=== PATIENT | female | born 1960 | race African-American/Black ===

== ENCOUNTER 2017-03-17 10:57 | Inpatient (IN) | payer OTHER ==
[~2017-03-17] VITALS: Ht 157.5 cm; Wt 103.8 kg
--- NOTE | ~2017-03-17 | EKG ---
[place] [address] [facility] [address] [place] [address] ELECTROCARDIOGRAM REPORT Name: ISSAC SOTO Room #: 170-12 ADM IN M.R.#: [id number] Admission: 03/17/17 Attend Phys: Dl Trotter Discharge: Date of : 64 Report #: [id number] THIS REPORT FOR: //name// [facility] ED Test Date: 2017-03-17 Test Time: 11:26:55 Pat Name: ISSAC SOTO Department: Room: 170 Gender: F Surgical Services Director: elizabeth : 1960 Requested By: Lana Barrera Order Number: [id number] MD: Nura Beckett Measurements Intervals [place] Rate: 103 P: 54 DC: 153 QRS: 16 QRSD: 75 T: 3 QT: 332 QTc: 435 Interpretive Statements Sinus tachycardia Multiple ventricular premature complexes Borderline T abnormalities, anterior leads No previous ECG available for comparison Electronically Signed On 03-17-2017 14:09:59 CDT by Nura Beckett [email or web address] <ELECTRONICALLY SIGNED> By: Nuar Beckett MD, [facility] 03/17/17 1409 1126 1126 Nura Beckett MD, FACC /EPI
[~2017-03-17 10:57] MED LIST: COLACE100 MG; DULCOLAX5 MG; HYDROCHLOROTH12.5 M1; KLOR-CON 1010 MEQ; LIDODERM 5%1 PATC1; LISINOPRIL10 MG; MEDROLDOSEPACK PO; NORVASC10 MG; PENICILLIN V P500 MG PO; PROTONIX 20 MG20 M1; TOPROL XL50 MG; VALIUM5 MG; ZOCOR 10 MG TAB10 MG
[2017-03-17 10:58] VITALS: BP 145/96
[2017-03-17 11:14] LABS: ABSOLUTE NEUTROPHILS 6.5 thou/uL (1.4-8.2); BASOPHILS 0.6 % (0.0-2.0); EOSINOPHILS 2.7 % (0.0-3.0); HEMOGLOBIN 14.6 gm/dL (12.0-15.0); LYMPHOCYTES 19.2 % (24.0-44.0); MCH 30.7 pg (26.0-34.0); MCHC 34.8 g/dL (28.0-37.0); MCV 88.1 fL (80.0-100.0); MONOCYTES 10.7 % (1.0-8.0); PLATELET COUNT 171 thou/uL (150-400); POLYS 66.8 % (36.0-66.0); RBC 4.76 mil/uL (4.20-5.00); RDW 13.8 % (10.5-14.5); WBC 9.8 thou/uL (4.0-11.0)
[2017-03-17 11:15] LABS: MANUAL DIFF NO
[2017-03-17 11:16] LABS: POC CA IONIZED 4.5 mg/dL (4.5-5.3); POC CREATININE 1.6 mg/dL (0.6-1.3); POC HEMOGLOBIN 14.6 g/dL (12.0-15.0); POC POTASSIUM 2.9 mmol/L (3.5-5.1)
[2017-03-17 11:27] LABS: APTT 30.6 Seconds (24.5-32.8); INR 1.1
[2017-03-17 11:30] LABS: PROTIME 11.3 Seconds (9.3-11.4)
[2017-03-17 11:32] LABS: ALBUMIN 3.7 g/dL (3.4-5.0); ALKALINE PHOSPHATASE 49 U/L (46-116); ANION GAP 13 mmol/L (7-16); BUN 17 mg/dL (7-18); CALCIUM 9.1 mg/dL (8.5-10.1); CHLORIDE 104 mmol/L (98-107); CO2 26 mmol/L (21-32); CREATININE 1.7 mg/dL (0.6-1.0); DIRECT BILIRUBIN 0.1 mg/dL (<0.1-0.3); SGOT 18 U/L (15-37); SGPT 21 U/L (30-65); SODIUM 143 mmol/L (136-145); TOTAL BILIRUBIN 0.5 mg/dL (<0.1-1.0); TOTAL PROTEIN 8.2 g/dL (6.4-8.2); TROPONIN-I < 0.04 ng/mL (<0.04-0.07)
[2017-03-17 11:33] LABS: GLUCOSE 102 mg/dL (74-106)
[2017-03-17 11:34] LABS: POTASSIUM 2.8 mmol/L (3.5-5.1)
[2017-03-17 13:52] VITALS: BP 143/83
[2017-03-17 14:37] VITALS: BP 139/94
[2017-03-17] MEDS ORDERED: PANTOPRAZOLE SO40 M1 PO (15:44)
[2017-03-17] MEDS ORDERED: PLAVIX 75 MG TA75 M1 PO (15:44)
[2017-03-17] MEDS ORDERED: SIMVASTATIN40 MG PO (15:45)
[2017-03-17] MEDS ORDERED: POTASSIUM20 PO (15:45)
[2017-03-17] MEDS ORDERED: GABAPENTIN 100100 MG PO (15:47)
[2017-03-17] MEDS ORDERED: DIAZEPAM 5 MG5 M1 PO (15:47)
[2017-03-17] MEDS ORDERED: LOPRESSOR100 M1 PO (15:48)
[2017-03-17] MEDS ORDERED: CHLORTHALIDONE25 MG PO (15:49)
[2017-03-17] MEDS ORDERED: STOOL SOFT-STI1 EACH PO (15:51)
[2017-03-17] MEDS ORDERED: ARTIFICIAL TEA1 EACH OP ×2 (15:52→16:18)
[2017-03-17 20:27] LABS: MAGNESIUM 1.4 mg/dL (1.8-2.4); POTASSIUM 3.4 mmol/L (3.5-5.1)
[2017-03-17 20:51] VITALS: BP 127/77
[2017-03-18] VITALS: BP 132/78
[2017-03-18 04:59] VITALS: BP 130/81
[2017-03-18 05:28] LABS: CALCIUM 8.5 mg/dL (8.5-10.1); CREATININE 1.7 mg/dL (0.6-1.0); MAGNESIUM 1.3 mg/dL (1.8-2.4); POTASSIUM 3.3 mmol/L (3.5-5.1)
[2017-03-18 08:53] VITALS: BP 126/76
[2017-03-18 11:22] VITALS: BP 114/72
[2017-03-18 15:25] VITALS: BP 146/79
[2017-03-18 19:27] VITALS: BP 124/80
[2017-03-19 04:00] VITALS: BP 121/77
[2017-03-19 05:19] LABS: CALCIUM 8.7 mg/dL (8.5-10.1); CREATININE 1.5 mg/dL (0.6-1.0); MAGNESIUM 1.9 mg/dL (1.8-2.4); POTASSIUM 3.3 mmol/L (3.5-5.1)
[2017-03-19 08:01] VITALS: BP 116/68
[2017-03-19 11:20] VITALS: BP 116/68
[2017-03-19 12:02] VITALS: BP 125/85
== END 2017-03-19 14:10 | disposition home or self-care (01) | DRG 682 ==
LOC: ER 10:57 → EROBS 12:56 → 4W 12:56
PROVIDERS: Emergency Medicine; Hospitalist; Nurse Practitioner Family
DX: N17.9 Acute kidney failure, unspecified (principal); R65.11 Systemic inflammatory response syndrome (SIRS) of non-infectious origin with acute organ dysfunction; I69.954 Hemiplegia and hemiparesis following unspecified cerebrovascular disease affecting left non-dominant side; K52.9 Noninfective gastroenteritis and colitis, unspecified; E86.0 Dehydration; E87.6 Hypokalemia; I10 Essential (primary) hypertension; Z88.6 Allergy status to analgesic agent; Z88.2 Allergy status to sulfonamides; Z88.8 Allergy status to other drugs, medicaments and biological substances; Z79.899 Other long term (current) drug therapy
CPT/HCPCS: 10045

== ENCOUNTER 2017-06-04 12:35 | Emergency (ER) | payer OTHER ==
[~2017-06-04] VITALS: Ht 157.5 cm; Wt 79.4 kg
--- NOTE | ~2017-06-04 | EKG ---
[place] [address] [facility] [place] [address] ELECTROCARDIOGRAM REPORT Name: ISSAC SOTO Room #: [facility]#: [id number] Admission: 06/04/17 Attend Phys: Discharge: 06/04/17 Date of : 64 Report #: [id number] THIS REPORT FOR: //name// [facility] ED Test Date: 2017-06-04 Test Time: 12:50:59 Pat Name: ISSAC SOTO Department: Room: Gender: F Night Shift: MARYANN : 1960 Requested By: Leighton Larson Order Number: [id number] MD: Nura Beckett Measurements Intervals [place] Rate: 63 P: 47 AR: 181 QRS: 3 QRSD: 81 T: 26 QT: 392 QTc: 402 Interpretive Statements Sinus rhythm Nonspecific T wave abnormality Compared to ECG 03/17/2017 11:26:55 Sinus tachycardia no longer present Ventricular premature complex(es) no longer present Electronically Signed On 06-05-2017 7:51:24 CDT by Nura Beckett [email or web address] <ELECTRONICALLY SIGNED> By: Nura Beckett MD, [facility] 06/05/17 0751 1250 1250 Nura Beckett MD, [facility] /EPI
[~2017-06-04 12:35] MED LIST changes: +ARTIFICIAL TEA1 EACH OP; +CHLORTHALIDONE25 MG PO; +DIAZEPAM 5 MG5 M1 PO; +GABAPENTIN 100100 MG PO; +LOPRESSOR100 M1 PO; +PANTOPRAZOLE SO40 M1 PO; +PLAVIX 75 MG TA75 M1 PO; +POTASSIUM20 PO; +SIMVASTATIN40 MG PO; +STOOL SOFT-STI1 EACH PO
[2017-06-04 12:57] LABS: ABSOLUTE NEUTROPHILS 5.4 thou/uL (1.4-8.2); BASOPHILS 0.6 % (0.0-2.0); EOSINOPHILS 2.2 % (0.0-3.0); HEMATOCRIT 40.1 % (37.0-47.0); HEMOGLOBIN 13.7 gm/dL (12.0-15.0); LYMPHOCYTES 27.1 % (24.0-44.0); MCH 30.2 pg (26.0-34.0); MCHC 34.1 g/dL (28.0-37.0); MCV 88.4 fL (80.0-100.0); MONOCYTES 8.7 % (1.0-8.0); PLATELET COUNT 212 thou/uL (150-400); POLYS 61.4 % (36.0-66.0); RBC 4.53 mil/uL (4.20-5.00); RDW 13.5 % (10.5-14.5); WBC 8.9 thou/uL (4.0-11.0)
[2017-06-04 12:58] LABS: MANUAL DIFF NO
[2017-06-04 13:06] LABS: ANION GAP 12 mmol/L (7-16); BUN 21 mg/dL (7-18); CALCIUM 9.8 mg/dL (8.5-10.1); CHLORIDE 103 mmol/L (98-107); CO2 27 mmol/L (21-32); CREATININE 1.7 mg/dL (0.6-1.0); GLUCOSE 99 mg/dL (74-106); POTASSIUM 3.3 mmol/L (3.5-5.1); SODIUM 142 mmol/L (136-145)
[2017-06-04 13:12] LABS: ALBUMIN 3.9 g/dL (3.4-5.0); ALKALINE PHOSPHATASE 59 U/L (46-116); SGOT 17 U/L (15-37); SGPT 22 U/L (30-65); TOTAL BILIRUBIN 0.4 mg/dL (<0.1-1.0); TOTAL PROTEIN 8.6 g/dL (6.4-8.2); TROPONIN-I < 0.04 ng/mL (<0.04-0.07)
[2017-06-04] MEDS ORDERED: PRINIVIL20 M1 PO (13:20)
[2017-06-04 13:53] LABS: URINE BILIRUBIN NEGATIVE (Negative); URINE BLOOD 1+ (Negative); URINE COLOR YELLOW; URINE GLUCOSE-RANDOM* NEGATIVE (Negative); URINE KETONES NEGATIVE (Negative); URINE LEUKOCYTES-REFLEX TRACE (Negative); URINE PROTEIN (DIPSTICK) 1+ (Negative); URINE UROBILINOGEN 0.2 E.U./dl (0.2-1.0)
[2017-06-04 14:10] LABS: CASTS None Seen /LPF (None Seen); CRYSTALS None Seen /LPF (None Seen); SQUAMOUS 0-3 Few /LPF (0-3); URINE RBC 0-2 Rare /HPF (0-2); URINE WBC-REFLEX 0-5 Rare /HPF (0-5)
== END 2017-06-04 15:42 | disposition home or self-care (01) ==
LOC: ER 12:35
PROVIDERS: Emergency Medicine
DX: R10.13 Epigastric pain (principal); I10 Essential (primary) hypertension; F03.90 Unspecified dementia, unspecified severity, without behavioral disturbance, psychotic disturbance, mood disturbance, and anxiety; Z87.442 Personal history of urinary calculi; Z98.890 Other specified postprocedural states; Z85.038 Personal history of other malignant neoplasm of large intestine; Z86.73 Personal history of transient ischemic attack (TIA), and cerebral infarction without residual deficits; Z88.2 Allergy status to sulfonamides; Z88.5 Allergy status to narcotic agent; Z88.6 Allergy status to analgesic agent

== ENCOUNTER 2019-06-02 10:15 | Emergency (ER) | payer OTHER ==
[~2019-06-02] VITALS: Ht 157.5 cm; Wt 108.9 kg
--- NOTE | ~2019-06-02 | EMS ---
[address] [address] EMS Patient Care Report Name: ISSAC SOTO Room #: DEP ILEANA Ortiz#: [id number] Admission: 06/02/19 Attend Phys: Discharge: 06/02/19 Date of : 64 Report #: [id number] THIS REPORT FOR: //name// Report Transmitted: 06/02/2019 16:15 EMS Care Summary [place], [place] Incident [id number] @ 06/02/2019 09:42 Incident Location [address] [place] [address] Patient ISSAC GIFFORD Female, 58 Years 1960 Patient Address [address] [place] [address] Patient History Hypertension,Stroke/CVA,Glaucoma, Patient Allergies No known allergies, Patient Medications Lisinopril, Valium, Plavix, Protonix, Metoprolol, Chief Complaint HEADACHE Disposition Transported No Lights/[place] Dispatch Reason Headache Transported To [facility] Narrative M42 DISPATCHED TO A HEADACHE. ON SCENE M42 FOUND THE PT IN HER LIVING ROOM. THE PT STATED THAT SHE HAS HAD A HEADACHE FOR THE PAST 15 HOURS AND EVENTS LIKE THIS HAVE BEEN HAPPENING FOR THE [address] [address] EMS Patient Care Report Name: ISSAC SOTO Room #: DEP Diana#: [id number] Admission: 06/02/19 Attend Phys: Discharge: 06/02/19 Date of : 64 Report #: [id number] PAST FEW MONTHS. SHE STATED THAT SHE WENT TO HER DOCTOR A FEW MONTHS AGO AND NO SOLUTION HAS BEEN FOUND. SHE STATED THAT SHE HAD A STROKE A FEW YEARS AGO AND SHE STATED THAT THE PAIN THAT SHE IS HAVING IS SIMILAR TO THE PAIN SHE HAD IN THE PAST. THE PTS HX, ALLERGIES, AND MEDS WERE GATHERED. THE PT WAS MOVED TO THE COT WITH ASSISTANCE AND MOVED INTO THE AMBULANCE. PT DENIED CP, SOB, N/V. THE PT STATED THAT SHE DID FEEL LIGHTHEADED. THE PT RATED HER PAIN AT A 3/10. THE PT STATED THAT THE PAIN WAS WORST LAST NIGHT, SHE TOOK TYLENOL AND SOME OF THE SYMPTOMS WERE RELIEVED. IN THE MEDIC UNIT THE PTS VITAL SIGNS WERE OBTAINED. STROKE SCALE WAS NEGATIVE. PT DID NOT WANT A BLOOD GLUCOSE CHECK. PT DID NOT MEET TPA EXCLUSION CRITERIA PROTOCOL AND ONSET OF HEAD PAIN WAS LONGER THAN 12 HOURS SO PT WAS TRANSPORTED NON EMERGENT TO [facility] WHICH WAS ALSO HER PREFERENCE. EN ROUTE PT REMAINED STABLE. REPORT WAS GIVEN TO RN AT [facility]. SIGNATURES OBTAINED. TRANSFER OF CARE TOOK PLACE. M42 IN SERVICE. Initial Vitals @10:04P: 72,CO: 3,SpO2: 97, @09:54P: 69,R: 18,BP: 188/87,Pain: 3/10,GCS: 15,SpO2: 94,Revised Trauma: 12, @10:07P: 66,R: 18,BP: 154/89,Pain: 3/10,GCS: 15,SpO2: 96,Revised Trauma: 12, Assessments @09:48MENTAL:Person Oriented,Event Oriented,Time Oriented,Place Oriented,SKIN:HEENT:Head/Face: Other,LUNG SOUNDS:ABDOMEN:PELVIS//GI:EXTREMITIES:Right Leg: Edema,Left Leg: Edema,Capillary Refill: Right Upper: < 2 Sec,PULSE:Radial: 2+ Normal,NEURO:@10:08MENTAL:Time Oriented,Event Oriented,Person Oriented,Place Oriented,SKIN:HEENT:Head/Face: Other,LUNG SOUNDS:ABDOMEN:PELVIS//GI:EXTREMITIES:Left Leg: Edema,Right Leg: Edema,Capillary Refill: Right Upper: < 2 Sec,PULSE:Radial: 2+ Normal,NEURO: Impression Headache Procedures @09:48ALS AssessmentResponse: UnchangedSucceeded Timeline 09:40,Call Received 09:40,Dispatch Notified 09:42,Dispatched 09:44,En Route [address] [address] EMS Patient Care Report Name: ISSAC SOTO Room #: DEP ILEANA Ortiz#: [id number] Admission: 06/02/19 Attend Phys: Discharge: 06/02/19 Date of : 64 Report #: [id number] 09:47,On Scene 09:48,At Patient 09:48,ALS Assessment,Response: UnchangedSucceeded, 09:54,BP: 188/87 M,PULSE: 69,RR: 18 R,SPO2: 94 Ox,ETCO2: ,BG: ,PAIN: 3,GCS: 15, 09:55,Depart Scene 10:04,BP: / M,PULSE: 72,RR: R,SPO2: 97 Ox,ETCO2: ,BG: ,PAIN: ,GCS: , 10:07,BP: 154/89 M,PULSE: 66,RR: 18 R,SPO2: 96 Ox,ETCO2: ,BG: ,PAIN: 3,GCS: 15, 10:11,At Destination 10:27,Call Closed Disclaimer v1.1 Copyright 2019 [employer] This EMS Care Summary contains data elements from the applicable legal record (which may be displayed differently). It is designed to provide pertinent information for the following purposes: continuity of care, clinical quality, and state data reporting. The complete legal record is available to ED staff and administrators of the receiving hospital in [employer] Patient Tracker. All data is provided "as is."
[~2019-06-02 10:15] MED LIST changes: +PRINIVIL20 M1 PO
[2019-06-02 11:45] VITALS: BP 141/76
[2019-06-02 11:46] LABS: URINE BILIRUBIN NEGATIVE (Negative); URINE BLOOD 2+ (Negative); URINE CLARITY CLEAR; URINE COLOR YELLOW; URINE GLUCOSE-RANDOM* NEGATIVE (Negative); URINE KETONES NEGATIVE (Negative); URINE LEUKOCYTES-REFLEX TRACE (Negative); URINE NITRITE-REFLEX NEGATIVE (Negative); URINE PROTEIN (DIPSTICK) 2+ (Negative); URINE SPECIFIC GRAVITY 1.015 (1.005-1.035); URINE UROBILINOGEN 0.2 E.U./dl (0.2-1.0)
[2019-06-02 11:55] LABS: CASTS None Seen /LPF (None Seen); CRYSTALS None Seen /LPF (None Seen); SQUAMOUS 0-3 Few /LPF (0-3); URINE RBC 0-2 Rare /HPF (0-2); URINE WBC-REFLEX 6-15 Few /HPF (0-5)
== END 2019-06-02 12:14 | disposition home or self-care (01) ==
LOC: ER 10:15
PROVIDERS: Emergency Medicine
DX: R51 Headache (principal); I10 Essential (primary) hypertension; F03.90 Unspecified dementia, unspecified severity, without behavioral disturbance, psychotic disturbance, mood disturbance, and anxiety; Z86.73 Personal history of transient ischemic attack (TIA), and cerebral infarction without residual deficits; Z87.442 Personal history of urinary calculi; Z98.890 Other specified postprocedural states; Z85.038 Personal history of other malignant neoplasm of large intestine; Z88.2 Allergy status to sulfonamides; Z88.6 Allergy status to analgesic agent; Z88.8 Allergy status to other drugs, medicaments and biological substances

== ENCOUNTER 2020-09-11 19:41 | Inpatient (IN) | payer OTHER ==
[~2020-09-11] VITALS: Ht 157.5 cm; Wt 116.1 kg
--- NOTE | ~2020-09-11 | HC ---
[facility] [place] [address] CONSULTATION Name: ISSAC SOTO Room #: 205-P ADM IN M.R.#: [id number] Admission: 09/12/20 Attend Phys: Jose Antonio Damian MD Discharge: Date of : 64 Report #: [id number] THIS REPORT FOR: cc: [facility] - Clinic physician unknown [facility] - Clinic physician unknown Mathieu Schultz MD ~ DATE OF SERVICE: 09/12/2020 HISTORY OF PRESENT ILLNESS: This is a 59-year-old female patient who was evaluated by me for the possibility of stroke, patient is a poor historian. She said she had a stroke 16 years ago when she was in [facility]. She does not know why she had a stroke at such a young age, but she does tell me that she was markedly hypertensive when it happened. She used to smoke cigarette. She has smoked marijuana since she was a teenager on a continuous basis. She used to drink alcohol significantly at that time. At that time, she had headache and this time, again she had headache. She had some nonspecific symptoms on the right side. It was mainly tingling and numbness. She had some motor deficit. REVIEW OF SYSTEMS: Indicates that she has a longstanding history of hypertension. She had a history of colon cancer and kidney stones. She thinks her memory is poor. She gets headache periodically and that is going on for a long time. She was also complaining of some chest symptoms, which are better. She does not believe that she has ever been diagnosed with migraine headache. A 14-point review of system was carried out. She had some history of gingivitis. She was admitted with hypokalemia. She does have a history of cervical radiculopathy. She thinks she is ALLERGIC TO ASPIRIN. Presently, she is on Plavix. She does not believe she was on Plavix at home. That was a relevant 14-point review of system. PAST MEDICAL HISTORY: Positive for stroke about 16 years ago. FAMILY HISTORY: Positive for strokes and heart attack. SOCIAL HISTORY: She smokes marijuana. PHYSICAL EXAMINATION: The patient's examination indicates that she is alert and responsive. She is morbidly obese. She knows what month and what date it is. She knows what hospital she was in. She thinks her memory is poor, but her speech looks intact. Cranial nerve examination 2-12 was carried out. 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 She has significant weakness on the left side, which is spastic and according to her, it is old. Her position sense appeared to be present on both sides. It is difficult to tell about plantars in [address] [address] CONSULTATION Name: ISSAC SOTO Room #: [address] [place] [address] IN M.R.#: [id number] Admission: 09/12/20 Attend Phys: Jose Antonio Damian MD Discharge: Date of : 64 Report #: [id number] this patient. There is no meningeal sign. There is no carotid bruit. I could not look at the patient's fundus. Pulses are somewhat difficult to feel. Blood pressure is 147/75, respirations 18, pulse is 65, temperature is 98.1. LABORATORY DATA: White count is 9. She was hypokalemic when she came in. She did have an MRI of the brain, which does show a question of small stroke. She had a CT angio of the head and neck, which was unremarkable. IMPRESSION: 1. Small lacunar cerebrovascular accident. 2. Prior history of lacunar cerebrovascular accident on the opposite side. 3. History of hypertension. 4. Chronic marijuana abuse. 5. Morbid obesity. 6. Severe hyperlipidemia. 7. Her creatinine is high at 1.9 and she got some contrast and I will suggest rechecking it. RECOMMENDATIONS: 1. We need to treat her dyslipidemia aggressively. She is on statin 40 mg. Consideration can be given to increase it to 80 mg. 2. She still has a severe hyperlipidemia. That needs to be monitored and needs to be treated aggressively. 3. She needs to lose weight and follow healthy habits. 4. She needs to stop smoking marijuana and drugs. All of it was discussed with her. She is already on Plavix. I did not give out a loading dose. She is such a poor historian. She cannot tell me if she was taking the Plavix at home or not. She should stay on Plavix. I did all her blood workup. I do not know whether she will qualify for rehabilitation or not but since she had a stroke, we will put a consult and see if she qualifies, she is ready to go there. If she does not qualify, we should start thinking about disposition and then she can follow up as an outpatient and further workup may have to be done as an outpatient. More than 50 minutes of time was spent taking care of this patient today and majority of that time was spent counseling and coordinating the patient's care. By: 09 11 Mathieu Schultz MD /nt
[2020-09-11 19:42] VITALS: BP 149/89
[2020-09-11 20:15] LABS: ANION GAP 13 mmol/L (7-16); BUN 18 mg/dL (7-18); CALCIUM 9.5 mg/dL (8.5-10.1); CHLORIDE 106 mmol/L (98-107); CO2 22 mmol/L (21-32); CREATININE 1.9 mg/dL (0.6-1.0); GLUCOSE 98 mg/dL (74-106); POTASSIUM 4.1 mmol/L (3.5-5.1); SODIUM 141 mmol/L (136-145)
[2020-09-11 20:25] LABS: ALBUMIN 3.4 g/dL (3.4-5.0); SGOT 25 U/L (15-37); SGPT 18 U/L (30-65); TOTAL BILIRUBIN 0.3 mg/dL (0.2-1.0); TOTAL PROTEIN 7.9 g/dL (6.4-8.2); TROPONIN-I <0.06 ng/mL (<0.06)
[2020-09-11 20:33] LABS: URINE BILIRUBIN NEGATIVE (Negative); URINE BLOOD 1+ (Negative); URINE CLARITY CLEAR; URINE COLOR YELLOW; URINE GLUCOSE-RANDOM* NEGATIVE (Negative); URINE KETONES NEGATIVE (Negative); URINE LEUKOCYTES-REFLEX NEGATIVE (Negative); URINE NITRITE-REFLEX NEGATIVE (Negative); URINE PROTEIN (DIPSTICK) 2+ (Negative); URINE UROBILINOGEN 0.2 E.U./dl (0.2-1.0)
[2020-09-11 20:36] LABS: ABSOLUTE NEUTROPHILS 4.2 thou/uL (1.4-8.2); BASOPHILS 0.9 % (0.0-2.0); EOSINOPHILS 4.1 % (0.0-3.0); HEMATOCRIT 38.3 % (37.0-47.0); HEMOGLOBIN 13.2 gm/dL (12.0-15.0); LYMPHOCYTES 39.1 % (24.0-44.0); MCH 31.4 pg (26.0-34.0); MCHC 34.4 g/dL (28.0-37.0); MCV 91.2 fL (80.0-100.0); MONOCYTES 9.6 % (1.0-8.0); PLATELET COUNT 198 thou/uL (150-400); POLYS 46.3 % (36.0-66.0)
[2020-09-11 21:07] LABS: BACTERIA-REFLEX None Seen /HPF (None Seen); CASTS None Seen /LPF (None Seen); CRYSTALS None Seen /LPF (None Seen); MUCUS None Seen strn/LPF (None Seen); SQUAMOUS None Seen /LPF (0-3); TRANSITIONAL EPITHEL CELL 0-3 Few /LPF (None Seen); URINE RBC 3-10 Few /HPF (0-2); URINE WBC-REFLEX None Seen /HPF (0-5)
[2020-09-12] VITALS (9 sets, daily range): BP systolic 142–177; BP diastolic 73–88
[2020-09-12] MEDS ORDERED: BACLOFEN 10MG T10 MG PO (03:23)
--- NOTE | 2020-09-12 04:32 | NUR ---
P t was an ER admit who came in as a result of possible stroke. Pt is stable. NIH stroke scal completed. Pt has residuclas from previous history of stroke. No sign of distress noted. Admission assessment and documented completed. Scheduled meds administered to pt. No acute events on pt. Continue to monitor. No further needs at this time.
--- NOTE | 2020-09-12 07:15 | EKG ---
[facility] [place] [address] ELECTROCARDIOGRAM REPORT Name: ISSAC SOTO Room #: 205-P ADM IN M.R.#: [id number] Admission: 09/12/20 Attend Phys: Jose Antonio Damian MD Discharge: Date of : 64 Report #: [id number] THIS REPORT FOR: cc: [facility] - Clinic physician unknown 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
[2020-09-12 10:33] LABS: CHOLESTEROL 222 mg/dL (<200); HDL CHOLESTEROL 34 mg/dL (>40); MAGNESIUM 1.6 mg/dL (1.8-2.4); TC:HDL 6.5 Ratio (Not establshd); TRIGLYCERIDE 409 mg/dL (<150); VLDL 82 mg/dL (<40)
[2020-09-12 16:46] LABS: CALCIUM 8.9 mg/dL (8.5-10.1); CREATININE 1.8 mg/dL (0.6-1.0); POTASSIUM 3.2 mmol/L (3.5-5.1)
[2020-09-12 16:50] LABS: APTT 27.6 Seconds (24.5-32.8); PROTIME 9.9 Seconds (9.3-11.4)
[2020-09-12 17:15] LABS: TSH 1.06 uIU/mL (0.358-3.740)
--- NOTE | 2020-09-12 19:36 | NUR ---
ASSESSMENT CHARTED. PT ALERT AND ORIENTED. VSS. PRN PAIN MED GIVEN FOR DELUNA WITH PARTIAL RELIEF. NEW ORDERS NOTED. NO CONCERNS AT THIS TIME.
[2020-09-13 04:08] VITALS: BP 155/81
[2020-09-13 04:25] LABS: CALCIUM 9.4 mg/dL (8.5-10.1); CREATININE 1.9 mg/dL (0.6-1.0); POTASSIUM 3.7 mmol/L (3.5-5.1)
[2020-09-13 05:09] LABS: HEMATOCRIT 39.8 % (37.0-47.0); HEMOGLOBIN 13.4 gm/dL (12.0-15.0); MCH 31.3 pg (26.0-34.0); MCHC 33.8 g/dL (28.0-37.0); MCV 92.8 fL (80.0-100.0); RBC 4.29 mil/uL (4.20-5.00); WBC 7.8 thou/uL (4.0-11.0)
--- NOTE | 2020-09-13 07:34 | NUR ---
PATIENTS CARES WERE ASSUME AT SHIFT CHANGE. PATIENT IS ALERT AND ORIENTED. ABLE TO CARRY OUT A CONVERSATION. SHE STAYS FOCUSED ON TASKS. PATIENT HAS A GOOD GATE WALKING WITH HER WALKER. PATIENT HAS BEEN PAIN FREE THIS SHIFT. THE BED IS IN A LOW AND LOCKED POSITION.
[2020-09-13 08:30] VITALS: BP 197/79
[2020-09-13] MEDS ORDERED: SIMVASTATIN40 MG PO (09:31)
[2020-09-13 11:28] VITALS: BP 197/79
[2020-09-13 11:32] VITALS: BP 197/79
[2020-09-13] MEDS ORDERED: MAGNESIUM250 M1 PO (11:45)
--- NOTE | 2020-09-13 12:01 | NUR ---
ASSESSMENT CHARTED. PT ALERT AND ORIENTED WITH FORGETFULNESS. DENIED HAVING PAIN OR DISCOMFORT. REPORT FEELING BETTER TODAY. SEEN BY DR. MUNOZ. ORDERS GIVE TO DISCHARGE PT TO HOME WITH HH. DISCHARGE ORDERS GIVEN TO PT AND THE GRAND DAUGHTER.
--- NOTE | 2020-09-13 13:11 | NUR ---
met with patient she has dc orders for dc with home health care. Patient resides at home. She has caregivers through [employer] that assist with transportion and care of housekeeping. Patient reports varies from days when they come in and how often. She reports caregiver avail as needed. Patient admits with CVA. She has prev CVA in past. She reports plan home with care and no preference for an agency. Patient uses cane for ambulation. DC finished goods planner to arrange home health care. verified address.
--- NOTE | 2020-09-13 14:29 | NUR ---
FAXED REFERRAL/DC ORDERS/SUMMARY TO [facility] RECEIVED CONFIRNATION AND SPOKE WITH [facility] IN INTAKE THEY ACCEPT PT'S INSURANCE AND WILL F/U WITH PT TO ARRANGE VISITS.
--- NOTE | 2020-09-13 16:01 | NUR ---
I have reviewed the documentation by MARK RODAS from 09/13/20 to 09/13/20 and I concur with it. NAHUM LEYVA, PT, DPT
== END 2020-09-13 12:02 | disposition home health service (06) | DRG 69 ==
LOC: ER 19:41 → 2N 09-12 01:10 → EROBS 09-12 01:10 → 2N 09-12 01:59
PROVIDERS: Emergency Medicine; Nurse Practitioner Family; Psychiatry & Neurology Neuromuscular Medicine; ADMIT Hospitalist; ATTEND Hospitalist
DX: G45.9 Transient cerebral ischemic attack, unspecified (principal); N17.9 Acute kidney failure, unspecified; C18.9 Malignant neoplasm of colon, unspecified; I69.354 Hemiplegia and hemiparesis following cerebral infarction affecting left non-dominant side; Z68.42 Body mass index [BMI] 45.0-49.9, adult; I12.9 Hypertensive chronic kidney disease with stage 1 through stage 4 chronic kidney disease, or unspecified chronic kidney disease; N18.9 Chronic kidney disease, unspecified; K21.9 Gastro-esophageal reflux disease without esophagitis; E78.5 Hyperlipidemia, unspecified; E66.01 Morbid (severe) obesity due to excess calories; F03.90 Unspecified dementia, unspecified severity, without behavioral disturbance, psychotic disturbance, mood disturbance, and anxiety; Z98.891 History of uterine scar from previous surgery; Z79.01 Long term (current) use of anticoagulants; Z79.899 Other long term (current) drug therapy; Z88.5 Allergy status to narcotic agent; Z88.2 Allergy status to sulfonamides; Z88.8 Allergy status to other drugs, medicaments and biological substances
CPT/HCPCS: 10081

== ENCOUNTER 2020-09-25 19:05 | Emergency (ER) | payer OTHER ==
[~2020-09-25] VITALS: Ht 157.5 cm; Wt 112.5 kg
[~2020-09-25 19:05] MED LIST changes: +BACLOFEN 10MG T10 MG PO; +MAGNESIUM250 M1 PO
[2020-09-25 20:17] LABS: ABSOLUTE NEUTROPHILS 5.2 thou/uL (1.4-8.2); BASOPHILS 0.9 % (0.0-2.0); EOSINOPHILS 3.5 % (0.0-3.0); HEMOGLOBIN 14.1 gm/dL (12.0-15.0); LYMPHOCYTES 32.5 % (24.0-44.0); MCH 31.6 pg (26.0-34.0); MCHC 34.4 g/dL (28.0-37.0); MCV 91.9 fL (80.0-100.0); MONOCYTES 9.7 % (1.0-8.0); PLATELET COUNT 203 thou/uL (150-400); POLYS 53.4 % (36.0-66.0); RBC 4.46 mil/uL (4.20-5.00); RDW 14.1 % (10.5-14.5); WBC 9.8 thou/uL (4.0-11.0)
[2020-09-25 20:24] LABS: ANION GAP 10 mmol/L (7-16); BUN 21 mg/dL (7-18); CALCIUM 9.3 mg/dL (8.5-10.1); CHLORIDE 104 mmol/L (98-107); CO2 24 mmol/L (21-32); CREATININE 1.7 mg/dL (0.6-1.0); GLUCOSE 100 mg/dL (74-106); SODIUM 138 mmol/L (136-145)
[2020-09-25 20:26] LABS: POTASSIUM 5.9 mmol/L (3.5-5.1)
[2020-09-25 20:30] LABS: APTT 27.1 Seconds (24.5-32.8); PROTIME 9.8 Seconds (9.3-11.4)
[2020-09-25 20:34] LABS: ALBUMIN 3.5 g/dL (3.4-5.0); TOTAL BILIRUBIN 0.3 mg/dL (0.2-1.0); TOTAL PROTEIN 8.4 g/dL (6.4-8.2); TROPONIN-I <0.06 ng/mL (<0.06)
[2020-09-26 07:07] VITALS: BP 167/86
--- NOTE | 2020-09-26 07:38 | EKG ---
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[facility] 1960 Requested By: Leighton Larson Order Number: [id number] MD: Adair Padron Measurements Intervals [place] Rate: 60 P: 58 NE: 157 QRS: 12 QRSD: 77 T: 23 QT: 414 QTc: 414 Interpretive Statements Sinus rhythm Probable left atrial enlargement Compared to ECG 09/11/2020 20:00:17 No significant changes Electronically Signed On 09-26-2020 7:38:19 [employer] by Adair Padron [email or web address] <ELECTRONICALLY SIGNED> By: Adair Padron MD, FACC 09/26/20 0738 24 24 Adair Padron MD, [facility] /EPI
== END 2020-09-26 07:09 | disposition home or self-care (01) ==
LOC: ER 19:05
PROVIDERS: Emergency Medicine
DX: R20.2 Paresthesia of skin (principal); E87.5 Hyperkalemia; I10 Essential (primary) hypertension; Z79.01 Long term (current) use of anticoagulants; Z79.899 Other long term (current) drug therapy; Z88.6 Allergy status to analgesic agent; Z88.5 Allergy status to narcotic agent; Z88.8 Allergy status to other drugs, medicaments and biological substances

== ENCOUNTER 2021-07-30 15:18 | Emergency (ER) | payer OTHER ==
[~2021-07-30] VITALS: Ht 157.5 cm; Wt 133.8 kg
--- NOTE | ~2021-07-30 | EMS ---
[facility] [address] [place] [address] EMS Patient Care Report Name: ISSAC SOTO Room #: DEP ILEANA Oritz#: [id number] Admission: 07/30/21 Attend Phys: Discharge: 07/30/21 Date of : 64 Report #: [id number] THIS REPORT FOR: //name// Report Transmitted: 08/04/2021 13:45 EMS Care Summary [place], [place] Incident [id number] @ 07/30/2021 14:14 Incident Location [address] [place] [address] Patient ISSAC SOTO Female, 60 Years 1960 Patient Address [address] [place] [address] Patient History Stroke/CVA, Chief Complaint weakness Disposition Transported No Lights/[place] Dispatch Reason Sick Person Transported To [facility] Narrative ems waited for pt to answer the door. pt was sitting in the wheelchair. pt a&ox4 gcs 15 and did not present in apparent distress. pt insisted ems come inside instead of her coming outside to head towards ems cot and ambulance. pt stated her son is on the way and doesnt want to leave til her son gets here. pt complained of her ears and her feet feeling hot. pt stated she felt weak x4hrs. pt stated she just "feels sick". ems asked multiple times if pt wants to be transported to the hospital. pt stated she wants to be assessed at home first. ems advised pt multiple times that ems cant rule out any dx and that she would [facility] [address] [place] [address] EMS Patient Care Report Name: ISSAC SOTO Room #: DEP Diana#: [id number] Admission: 07/30/21 Attend Phys: Discharge: 07/30/21 Date of : 64 Report #: [id number] need to be seen at the hospital. pt repeatedly stated how she was surprised she is on how high her bp is. ems repeatedly stated it would be in her best interest to be seen at the hospital with that high of a bp. pt then requested to be transported to the hospital by ambulance. pt [facility]. pt stated she wanted to go to the bathroom first. pt stated she will not wait. pt went to restroom. pt stated she wont leave til her son gets here. pts son finally arrived and encouraged pt to get into the ambulance and go to the hosptial and to quit stalling. pt finally exited the house. pt had her son make several trips inside the house to collect things for the hospital trip. pts son repeated to pt to get on the ems cot so she can be transported. pt was transferred onto ems cot and was secured in a semi fowlers position without incident. pt was loaded into ambulance. pt was transported non emergent. transport was uneventful and pt rested on ems cot. pt care was transferred to appropriate staff and ems goes back in service. pts purse, phone, and blanket were left with pt. Initial Vitals @14:26P: 80,R: 20,BP: 192/102,Pain: 0/10,GCS: 15,SpO2: 98,Revised Trauma: 12, @15:04P: 76,R: 20,BP: 176/118,GCS: 15,SpO2: 98,Revised Trauma: 12, Assessments @14:23MENTAL:No Abnormalities,SKIN:No Abnormalities,HEENT:Head/Face: No Abnormalities,Eyes: No Abnormalities,Neck/Airway: No Abnormalities,LUNG SOUNDS:General: No Abnormalities,Left Upper: No Abnormalities,Right Upper: No Abnormalities,Left Lower: No Abnormalities,Right Lower: No Abnormalities,ABDOMEN:General: No Abnormalities,Left Upper: No Abnormalities,Right Upper: No Abnormalities,Left Lower: No Abnormalities,Right Lower: No Abnormalities,PELVIS//GI:No Abnormalities,EXTREMITIES:Left Arm: No Abnormalities,Right Arm: No Abnormalities,Left Leg: No Abnormalities,Right Leg: No Abnormalities,PULSE:NEURO:No Abnormalities,@14:57MENTAL:No Abnormalities,SKIN:No Abnormalities,HEENT:Head/Face: No Abnormalities,Eyes: No Abnormalities,Neck/Airway: No Abnormalities,LUNG SOUNDS:General: No Abnormalities,Left Upper: No Abnormalities,Right Upper: No Abnormalities,Left Lower: No Abnormalities,Right Lower: No Abnormalities,ABDOMEN:General: No Abnormalities,Left Upper: No Abnormalities,Right Upper: No Abnormalities,Left Lower: No Abnormalities,Right Lower: No Abnormalities,PELVIS//GI:No Abnormalities,EXTREMITIES:Left Arm: No Abnormalities,Right Arm: No Abnormalities,Left Leg: No Abnormalities,Right Leg: No Abnormalities,PULSE:NEURO:No Abnormalities, Impression Generalized Weakness Procedures @14:23ALS AssessmentResponse: UnchangedSucceeded [facility] [address] [place] [address] EMS Patient Care Report Name: ISSAC SOTO Room #: RAMON Ortiz#: [id number] Admission: 07/30/21 Attend Phys: Discharge: 07/30/21 Date of : 64 Report #: [id number] Timeline 14:14,Call Received 14:14,Dispatch Notified 14:14,Dispatched 14:16,En Route 14:22,On Scene 14:23,At Patient 14:23,ALS Assessment,Response: UnchangedSucceeded, 14:26,BP: 192/102 M,PULSE: 80,RR: 20 R,SPO2: 98 Ox,ETCO2: ,BG: ,PAIN: 0,GCS: 15, 14:56,Depart Scene 15:04,BP: 176/118 M,PULSE: 76,RR: 20 R,SPO2: 98 Ox,ETCO2: ,BG: ,PAIN: ,GCS: 15, 15:06,At Destination 15:31,Call Closed Disclaimer v1.1 Copyright 2020 [employer] This EMS Care Summary contains data elements from the applicable legal record (which may be displayed differently). It is designed to provide pertinent information for the following purposes: continuity of care, clinical quality, and state data reporting. The complete legal record is available to ED staff and administrators of the receiving hospital in [facility]'s Patient Tracker. All data is provided "as is."
[2021-07-30 16:26] LABS: URINE BILIRUBIN NEGATIVE (Negative); URINE BLOOD 3+ (Negative); URINE CLARITY CLEAR; URINE COLOR YELLOW; URINE GLUCOSE-RANDOM* NEGATIVE (Negative); URINE KETONES NEGATIVE (Negative); URINE LEUKOCYTES-REFLEX NEGATIVE (Negative); URINE NITRITE-REFLEX NEGATIVE (Negative); URINE PROTEIN (DIPSTICK) 3+ (Negative); URINE UROBILINOGEN 0.2 E.U./dl (0.2-1.0)
[2021-07-30 16:54] LABS: CASTS None Seen /LPF (None Seen); SQUAMOUS 4-10 Moderate /LPF (0-3); URINE RBC 3-10 Few /HPF (NONE SEEN); URINE WBC-REFLEX 0-5 Rare /HPF (0-5)
[2021-07-30 16:55] LABS: BACTERIA-REFLEX 1-9 Few /HPF (None Seen); CRYSTALS None Seen /LPF (None Seen)
[2021-07-30 17:14] LABS: ABSOLUTE NEUTROPHILS 5.2 thou/uL (1.4-8.2); BASOPHILS 0.9 % (0.0-2.0); EOSINOPHILS 3.2 % (0.0-3.0); HEMATOCRIT 36.4 % (37.0-47.0); HEMOGLOBIN 12.4 gm/dL (12.0-15.0); MCH 29.8 pg (26.0-34.0); MCHC 34.1 g/dL (28.0-37.0); MCV 87.4 fL (80.0-100.0); MONOCYTES 9.8 % (1.0-8.0); PLATELET COUNT 234 thou/uL (150-400); POLYS 59.1 % (36.0-66.0); RBC 4.16 mil/uL (4.20-5.00); RDW 14.1 % (10.5-14.5); WBC 8.8 thou/uL (4.0-11.0)
[2021-07-30 17:38] LABS: CALCIUM 9.4 mg/dL (8.5-10.1); CREATININE 2.3 mg/dL (0.6-1.0); POTASSIUM 3.6 mmol/L (3.5-5.1)
[2021-07-30 17:48] LABS: ALBUMIN 3.6 g/dL (3.4-5.0); TOTAL BILIRUBIN 0.3 mg/dL (0.2-1.0)
[2021-07-30] MEDS ORDERED: CEPHALEXIN500 MG PO (18:06)
[2021-07-30 18:19] VITALS: BP 190/85
--- NOTE | 2021-07-31 12:06 | EKG ---
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
== END 2021-07-30 18:46 | disposition home or self-care (01) ==
LOC: ER 15:18
PROVIDERS: Physician Assistant
DX: N39.0 Urinary tract infection, site not specified (principal); Z20.822 Contact with and (suspected) exposure to COVID-19